=== PATIENT | male | born 1960 | race Caucasian/White ===

== ENCOUNTER 2023-02-09 11:25 | Day surgery (SDC) | payer OTHER ==
[~2023-02-09] VITALS: Ht 157.5 cm; Wt 81.6 kg
[2023-02-09] MEDS ORDERED: LIDOCAINE 2% 100 MG/5 ML UJET TP ONE (13:09)
[2023-02-09] MEDS ORDERED: fentaNYL citrate 0.05 MG/ML VIAL ONE (13:09)
[2023-02-09] MEDS ORDERED: fentaNYL citrate 0.05 MG/ML VIAL IVP ONE (14:40)
== END 2023-02-09 14:36 | disposition home or self-care (01) ==
LOC: MDS 11:25 → MMU 11:27 → MDS 14:36
PROVIDERS: ATTEND Internal Medicine Gastroenterology
DX: Z12.11 Encounter for screening for malignant neoplasm of colon (principal); K63.5 Polyp of colon; E11.9 Type 2 diabetes mellitus without complications; E66.9 Obesity, unspecified; Z68.32 Body mass index [BMI] 32.0-32.9, adult; Z79.84 Long term (current) use of oral hypoglycemic drugs; Z79.899 Other long term (current) drug therapy
CPT/HCPCS: 45385; 82948; J3010